=== PATIENT | male | born 1990 | race Caucasian/White ===

== ENCOUNTER 2018-09-26 00:13 | Emergency (ER) | payer MEDICAID, OTHER ==
[2018-09-26 00:19] VITALS: BP 147/101
[2018-09-26] MEDS ORDERED: TDAP ADULT 0.5 ML INJ (BOOSTRIX) IM ONE (00:23)
--- NOTE | 2018-09-26 00:29 | EDPHY ---
H & P Stated Complaint: Washing dishes and pint-glass broke cutting right pinky Time Seen by Provider: 09/26/18 00:23 HPI/ROS: HPI: This is a 28-year-old male who presents with Chief Complaint: Washing dishes and pint-glass broke cutting right pinky Location: Right hand, base of right little finger Quality: Laceration Duration: Prior to arrival Signs and Symptoms: + bleeding, no radiation, no numbness, no weakness, no tingling, no incontinence, no decreased range of motion, no swelling, + pain, no fever Timing: Acute Severity: Moderate Context: Patient is right-hand dominant, presents with accidentally cutting base of his right little finger/hand on glass as he was washing dishes. He reports that he stuck his hand inside of a pt glass and was spiraling the washcloth around on the inside when he heard the glass break and then felt pain at the base of his right little finger. He reports that he immediately started to bleed. He applied direct pressure to stop the bleeding. He denies any pain at this time. He denies paresthesias, radiation, weakness, decreased range of motion. Unsure of tetanus status. Modifying Factors: Direct pressure Comment: ROS: A comprehensive 10 system review of systems is otherwise negative aside from elements mentioned in the history of present illness. MEDICAL/SURGICAL/SOCIAL HISTORY: Medical history: Generally healthy. Does not take any regular medications. Surgical history: Rotator cuff surgery Social history: Never smoked. Denies drug use. CONSTITUTIONAL: Polite and cooperative adult white male, awake and alert, no obvious distress HEENT: Atraumatic and normocephalic. NECK: supple, no midline tenderness Cardiovascular: Normal S1/S2, regular rate, regular rhythm, without murmur rub or gallop. PULMONARY/CHEST: Symmetrical and nontender. no crepitus. Clear to auscultation bilaterally. Good air movement. No accessory muscle usage. ABDOMEN: Soft, nondistended, nontender, no ecchymosis. EXTREMITIES: 2/2 pulses, strength 5/5, right hand at the base of the left pinky shows C-shaped 8 cm laceration-no active bleeding. DIP/PIP/MCP flexion/ extension intact with good light touch sensation. no deformities, no clubbing, no cyanosis or edema. NEUROLOGICAL: no focal neuro deficits. GCS 15. Light touch sensation intact. SKIN: Warm and dry, no erythema. no rash. Good capillary refill. Source: Patient Exam Limitations: No limitations - Personal History Current Tetanus Diphtheria and Acellular Pertussis (TDAP): Unsure - Medical/Surgical History Hx Asthma: No Hx Chronic Respiratory Disease: No Hx Diabetes: No Hx Cardiac Disease: No Hx Renal Disease: No Hx Cirrhosis: No Hx Alcoholism: No Hx HIV/AIDS: No Hx Splenectomy or Spleen Trauma: No Other PMH: Right rotator cuff surgery - Social History Smoking Status: Never smoked Constitutional: Initial Vital Signs Temperature (C) 36.7 C 09/26/18 00:17 Heart Rate 95 09/26/18 00:17 Respiratory Rate 16 09/26/18 00:17 Blood Pressure 147/101 H 09/26/18 00:17 O2 Sat (%) 96 09/26/18 00:17 O2 Delivery Mode Room Air Allergies/Adverse Reactions: No Known Allergies Allergy (Unverified 09/26/18 00:16) Home Medications: Medication Instructions Recorded NK [No Known Home Meds] 09/26/18 Medical Decision Making Procedures: Procedure: Laceration repair. Verbal consent was obtained from the patient. The 6-8 cm, C-shaped laceration on the right hand was anesthetized in the usual fashion using 10 mL of 1% lidocaine with epinephrine. The wound was irrigated, draped and explored to its base with a gloved finger. There were no deep structures involved. No tendon injury was identified. The wound was repaired with #11, 4-0 Prolene. Good hemostasis was achieved and patient tolerated procedure well. Clean sterile dressing applied. The procedure was performed by myself. Procedure: Splint placement. A right little finger splint was applied by the Emergency Room health and safety technician. After application of the splint I returned and re-examined the patient. The splint was adequately immobilizing the joint and distal to the splint the patient's circulation and sensation was intact. ED Course/Re-evaluation: Tetanus booster given. Local anesthesia provided and copiously irrigated Laceration repair Xeroform, Clean sterile dressing, finger splint applied decreased mobilization for the next few days Verbal and written wound care instructions provided No signs of neurovascular compromise/tenting of skin/compartment syndrome/ extremities and joints examined above and below area of concern and are neurovascularly intact/tendon injury. This patient was seen under the supervision of my secondary supervising physician. I evaluated care for this patient independently. Discussed this patient with Dr. Sterling who did not see the patient. Differential Diagnosis: Differential diagnosis includes but is not limited to laceration, foreign body, nerve injury, tendon injury. - Data Points Medications Given: Discontinued Medications Diphtheria/Tetanus/Acell Pertussis (Boostrix) 0.5 ml IM .ONCE ONE Stop: 09/26/18 00:24 Last Admin: 09/26/18 00:29 Dose: 0.5 ml Departure - Departure Disposition: Home, Routine, Self-Care Clinical Impression: Laceration without foreign body of right hand, initial encounter Condition: Good Instructions: Care For Your Stitches (ED), Laceration (ED) Additional Instructions: Keep the dressing/splint dry and in place for 48-72 hours. After 48 hours, you may remove the dressing; wash the site daily with mild soap and water; then pat dry. Take Tylenol 650 mg every 4 hours and/or Ibuprofen 600 mg every 8 hours with food as needed for pain. Wound Care Follow-Up: Removal of sutures in [10-14] days. Suture removal is complimentary in uncomplicated cases. Infection or abnormal findings would require reevaluation by the MD. In that case, you may be billed. Return to the ER immediately if you experience new or worsening pain, discoloration, numbness, tingling, or any other symptoms that concern you. Referrals: Jace Chou MD [Medical Doctor] - Follow Up Only If Needed
== END 2018-09-26 01:12 | disposition home or self-care (01) ==
PROC: 0HQFXZZ Repair Right Hand Skin, External Approach (ICD-10-PCS; principal; 2018-09-26)
DX: S61.226A Laceration with foreign body of right little finger without damage to nail, initial encounter (principal); W25.XXXA Contact with sharp glass, initial encounter; Y92.9 Unspecified place or not applicable; Y93.G1 Activity, food preparation and clean up; Y99.9 Unspecified external cause status; Z23 Encounter for immunization
CPT/HCPCS: L3925